=== PATIENT | male | born 1990 | race Caucasian/White ===

== ENCOUNTER 2024-08-20 22:00 | Emergency (ER) | payer MEDICAID ==
[2024-08-20 22:36] VITALS: BP 154/77; PULSE 94
[2024-08-20] MEDS: cefTRIAXone 1 GM Vial IM ONE (22:48)
== END 2024-08-20 23:15 | disposition home or self-care (01) ==
LOC: FB.ED 22:00
DX: T81.49XA Infection following a procedure, other surgical site, initial encounter (principal); Z79.899 Other long term (current) drug therapy
CPT/HCPCS: 96372; 99283; J0696